=== PATIENT | female | born 1955 | race Caucasian/White ===

== ENCOUNTER 2022-07-01 17:50 | Emergency (ER) | payer OTHER, MEDICARE ==
[2022-07-01] MEDS ORDERED: Diazepam 5 MG TAB ONE (19:18)
[2022-07-01] MEDS ORDERED: Ketorolac Tromethamine 30 MG/ML VIAL ONE ×2 (19:18→19:19)
== END 2022-07-01 20:10 | disposition home or self-care (01) ==
LOC: CSHERS 17:50
DX: T14.8XXA Other injury of unspecified body region, initial encounter (principal); V89.2XXA Person injured in unspecified motor-vehicle accident, traffic, initial encounter; I10 Essential (primary) hypertension
CPT/HCPCS: 72040; 72100; 96372; J1885